=== PATIENT | female | born 1940 | race Caucasian/White ===

== ENCOUNTER 2016-07-09 07:35 | Outpatient (CLI) | payer MEDICARE | END 2016-07-09 07:36 | disposition home or self-care (01) | DX: N18.3 Chronic kidney disease, stage 3 (moderate) (principal); E78.5 Hyperlipidemia, unspecified ==

== ENCOUNTER 2017-02-21 09:06 | Outpatient (CLI) | payer MEDICARE | END 2017-02-21 09:07 | disposition EMS.NT | LOC: EMS 09:06 | PROVIDERS: ATTEND Surgery | DX: Z03.89 Encounter for observation for other suspected diseases and conditions ruled out (principal); W01.0XXA Fall on same level from slipping, tripping and stumbling without subsequent striking against object, initial encounter; Y92.008 Other place in unspecified non-institutional (private) residence as the place of occurrence of the external cause ==

== ENCOUNTER 2017-03-03 08:00 | Outpatient (CLI) | payer MEDICARE ==
[2017-03-03 12:53] LABS: CALCIUM 9.5 mg/dL (8.5-10.3); CREATININE 1.4 mg/dL (0.4-1.0); POTASSIUM 4.3 mmol/L (3.5-5.0)
== END 2017-03-03 08:01 | disposition home or self-care (01) ==
LOC: LAB.N 08:00
PROVIDERS: ATTEND Internal Medicine Cardiovascular Disease
DX: I50.22 Chronic systolic (congestive) heart failure (principal)
CPT/HCPCS: 36415; 80048

== ENCOUNTER 2017-08-12 07:37 | Outpatient (CLI) | payer MEDICARE ==
[2017-08-12 13:16] LABS: ALBUMIN 3.9 g/dL (3.2-5.5); ALBUMIN/GLOBULIN RATIO 1.4 (1.0-2.2); ALKALINE PHOSPHATASE 64 IU/L (42-121); ALT ALANINE AMINOTRANSFERASE 27 IU/L (10-60); AST ASPARTATE AMINOTRANSFERASE 26 IU/L (10-42); BILIRUBIN,TOTAL 0.9 mg/dL (0.2-1.0); BUN - BLOOD UREA NITROGEN 32 mg/dL (6-20); CALCIUM 9.1 mg/dL (8.5-10.3); CARBON DIOXIDE - CO2 27 mmol/L (21-32); CHLORIDE 105 mmol/L (101-111); CHOL/HDL RATIO 5.4 (<4.4); CHOLESTEROL 247 mg/dL; CREATININE 1.6 mg/dL (0.4-1.0); GFR - MDRD 31 (>89); GLUCOSE 94 mg/dL (70-100); HDL CHOLESTEROL 46 mg/dL; LDL CHOLESTEROL,CALCULATED 175 mg/dL; LDL/HDL RATIO 3.8 (<4.4); SODIUM 139 mmol/L (135-145); TOTAL PROTEIN 6.7 g/dL (6.7-8.2); VLDL CHOLESTEROL 26 mg/dL
[2017-08-12 13:22] LABS: BASOPHILS % (AUTO) 0.9 %; EOSINOPHILS # (AUTO) 0.5 10^3/uL (0.0-0.7); EOSINOPHILS % (AUTO) 8.8 %; HGB - HEMOGLOBIN 13.1 g/dL (12.0-16.0); LYMPHOCYTES # (AUTO) 1.6 10^3/uL (1.5-3.5); LYMPHOCYTES % (AUTO) 28.8 %; MEAN CORPUSCULAR HGB CONC 34.3 g/dL (32.0-36.0); MEAN CORPUSCULAR VOLUME 99.1 fL (81.0-99.0); MEAN PLATELET VOLUME 9.3 fL (7.9-10.8); MONOCYTES # (AUTO) 0.6 10^3/uL (0.0-1.0); NEUTROPHILS # (AUTO) 2.7 10^3/uL (1.5-6.6); NEUTROPHILS % (AUTO) 50.5 %; PLT - PLATELET COUNT 216 10^3/uL (130-450); RED BLOOD COUNT 3.84 10^6/uL (4.20-5.40); RED CELL DISTRIBUTION WIDTH 13.3 % (12.0-15.0); WHITE BLOOD COUNT 5.4 x10^3/uL (4.8-10.8)
[2017-08-12 13:42] LABS: PLATELET ESTIMATE, MANUAL NORMAL (130-450,000) (NORMAL); RBC MORPHOLOGY (MULTIPLE) NORMAL APPEARANCE (NORMAL)
== END 2017-08-12 07:38 ==
LOC: LAB.N 07:37
PROVIDERS: ATTEND Family Medicine
DX: N18.3 Chronic kidney disease, stage 3 (moderate) (principal); E78.5 Hyperlipidemia, unspecified
CPT/HCPCS: 36415; 80053; 80061; 83721; 85025

== ENCOUNTER 2018-04-02 11:22 | Outpatient (CLI) | payer MEDICARE ==
--- NOTE | 2018-04-05 09:32 | Mammography Report ---
Reason: SCREENING MAMMO Procedure Date: 04/02/2018 Accession Number: [id number] / [id number] Procedure: MGN - Screening Mammo Dig Bilat CPT Code: FULL RESULT: EXAM: Screening Mammo Dig Bilat DATE: 04/02/2018 11:39 AM CLINICAL HISTORY: Screening encounter. History of early menses. TECHNIQUE: Bilateral CC and MLO views were obtained. COMPARISON: 04/30/2015 through 10/29/2011. FINDINGS: The breasts demonstrate diffuse fatty replacement bilaterally. There are coarse typically benign calcifications. No suspicious masses, clustered microcalcifications, or regions of architectural distortion are identified. IMPRESSION: Benign findings RECOMMENDATION: Routine annual screening unless otherwise clinically indicated. BIRADS CATEGORY 2: Benign findings STANDARD QUALIFYING STATEMENTS: 1. This examination was reviewed with the aid of Computer-Aided Detection (CAD). 2. A negative or benign imaging report should not preclude biopsy if clinically suspicious findings are present. 3. Dense breasts may obscure an underlying neoplasm. 4. This examination was reviewed without the aid of 3D breast imaging (tomosynthesis).
== END 2018-04-02 11:23 | disposition home or self-care (01) ==
LOC: DI.N 11:22
PROVIDERS: ATTEND Internal Medicine
DX: Z12.31 Encounter for screening mammogram for malignant neoplasm of breast (principal)
CPT/HCPCS: 77067

== ENCOUNTER 2019-11-16 12:46 | Outpatient (CLI) | payer MEDICARE ==
--- NOTE | 2019-11-17 05:47 | Mammography Report ---
BILATERAL DIGITAL SCREENING MAMMOGRAM 3D/2D: 11/16/2019 CLINICAL: Routine screening. Comparison is made to exams dated: 04/30/2015 mammogram, 02/04/2013 mammogram, and 04/02/2018 mammogra m - [facility]. The tissue of both breasts is predominantly fatty. No significant masses, calcifications, or other findings are seen in either breast. There has been no significant interval change. IMPRESSION: NEGATIVE There is no mammographic evidence of malignancy. A 1 year screening mammogram is recommended. This exam was interpreted at Station ID: [id number]. NOTE: For mammograms, a report in lay terms will be sent to the patient. Approximately 15% of breast malignancies will not be visualized mammographically. In the management of a palpable breast mass, a negative mammogram must not discourage biopsy of a clinically suspicious lesion. Electronically Signed By: Carmen [email or web address]:11/16/2019 14:40:10 ACR BI-RADS Category 1: Negative 3341F PARENCHYMAL PATTERN: (F) - The breast(s) demonstrate(s) diffuse fatty replacement. BI-RADS CATEGORY: (1) - 1 RECOMMENDATION: (ANNUAL) - Recommend routine annual screening mammography. [id number] 1 year screening LATERALITY: (B)
== END 2019-11-16 12:47 | disposition home or self-care (01) ==
LOC: DI.N 12:46
PROVIDERS: ATTEND Internal Medicine
DX: Z12.31 Encounter for screening mammogram for malignant neoplasm of breast (principal)
CPT/HCPCS: 77063; 77067

== ENCOUNTER 2019-11-17 08:00 | Outpatient (CLI) | payer MEDICARE ==
[2019-11-17 12:14] LABS: BASOPHILS # (AUTO) 0.1 10^3/uL (0.0-0.1); BASOPHILS % (AUTO) 1.2 %; EOSINOPHILS # (AUTO) 0.3 10^3/uL (0.0-0.7); EOSINOPHILS % (AUTO) 6.3 %; HGB - HEMOGLOBIN 13.1 g/dL (12.0-16.0); LYMPHOCYTES # (AUTO) 1.6 10^3/uL (1.5-3.5); LYMPHOCYTES % (AUTO) 37.7 %; MEAN CORPUSCULAR HEMOGLOBIN 32.8 pg (27.0-31.0); MEAN CORPUSCULAR HGB CONC 31.6 g/dL (32.0-36.0); MEAN CORPUSCULAR VOLUME 103.5 fL (81.0-99.0); MEAN PLATELET VOLUME 11.5 fL (7.9-10.8); MONOCYTES # (AUTO) 0.4 10^3/uL (0.0-1.0); MONOCYTES % (AUTO) 9.6 %; NEUTROPHILS # (AUTO) 1.9 10^3/uL (1.5-6.6); PLT - PLATELET COUNT 196 10^3/uL (130-450); RED CELL DISTRIBUTION WIDTH 12.9 % (12.0-15.0); WHITE BLOOD COUNT 4.2 x10^3/uL (4.8-10.8)
[2019-11-17 12:24] LABS: ALBUMIN/GLOBULIN RATIO 1.7 (1.0-2.2); ALKALINE PHOSPHATASE 68 IU/L (42-121); ALT ALANINE AMINOTRANSFERASE 31 IU/L (10-60); AST ASPARTATE AMINOTRANSFERASE 29 IU/L (10-42); BUN - BLOOD UREA NITROGEN 33 mg/dL (6-20); CALCIUM 9.3 mg/dL (8.5-10.3); CARBON DIOXIDE - CO2 29 mmol/L (21-32); CHLORIDE 105 mmol/L (101-111); CHOL/HDL RATIO 3.7 (<4.4); CHOLESTEROL 205 mg/dL; CREATININE 1.8 mg/dL (0.4-1.0); GLUCOSE 99 mg/dL (70-100); HDL CHOLESTEROL 56 mg/dL; LDL CHOLESTEROL,CALCULATED 130 mg/dL; LDL/HDL RATIO 2.3 (<4.4); SODIUM 140 mmol/L (135-145); TOTAL PROTEIN 6.4 g/dL (6.7-8.2); VLDL CHOLESTEROL 19 mg/dL
== END 2019-11-17 23:59 | disposition home or self-care (01) ==
LOC: LAB.WCP 08:00
PROVIDERS: ATTEND Internal Medicine
DX: E78.5 Hyperlipidemia, unspecified (principal); I42.8 Other cardiomyopathies; N18.9 Chronic kidney disease, unspecified; Z79.899 Other long term (current) drug therapy
CPT/HCPCS: 36415; 80053; 80061; 83721; 84443; 85025

== ENCOUNTER 2020-11-08 17:38 | Outpatient (CLI) | payer MEDICARE | END 2020-11-08 17:39 | disposition home or self-care (01) | LOC: COV 17:38 | PROVIDERS: ATTEND Family Medicine | DX: R50.9 Fever, unspecified (principal); R05 Cough; R06.02 Shortness of breath; M79.10 Myalgia, unspecified site; R53.83 Other fatigue; R07.0 Pain in throat; R09.81 Nasal congestion; Z20.822 Contact with and (suspected) exposure to COVID-19 ==

== ENCOUNTER 2020-11-12 08:00 | Outpatient (CLI) | payer MEDICARE ==
[2020-11-12 11:38] LABS: HCT - HEMATOCRIT 39.9 % (37.0-47.0); HGB - HEMOGLOBIN 12.7 g/dL (12.0-16.0); MEAN CORPUSCULAR HGB CONC 31.8 g/dL (32.0-36.0); MEAN CORPUSCULAR VOLUME 103.6 fL (81.0-99.0); MEAN PLATELET VOLUME 11.5 fL (7.9-10.8); RED BLOOD COUNT 3.85 10^6/uL (4.20-5.40); RED CELL DISTRIBUTION WIDTH 13.1 % (12.0-15.0); WHITE BLOOD COUNT 5.4 x10^3/uL (4.8-10.8)
[2020-11-12 11:45] LABS: ALBUMIN 4.2 g/dL (3.2-5.5); ALBUMIN/GLOBULIN RATIO 1.5 (1.0-2.2); BILIRUBIN,TOTAL 1.1 mg/dL (0.2-1.0); CALCIUM 9.6 mg/dL (8.5-10.3); CREATININE 2.2 mg/dL (0.4-1.0); POTASSIUM 4.3 mmol/L (3.5-5.0)
== END 2020-11-12 08:01 | disposition home or self-care (01) ==
LOC: LAB.N 08:00
PROVIDERS: ATTEND Internal Medicine Cardiovascular Disease
DX: I42.9 Cardiomyopathy, unspecified (principal)
CPT/HCPCS: 36415; 80053; 85027

== ENCOUNTER 2020-11-22 09:35 | Outpatient (CLI) | payer MEDICARE ==
[2020-11-22 13:06] LABS: CREATININE,URINE 158.5 mg/dL
[2020-11-22 13:52] LABS: MICROALBUMIN,URINE < 0.2 mg/dL (0-300.0)
== END 2020-11-22 09:36 | disposition home or self-care (01) ==
LOC: LAB.N 09:35
PROVIDERS: ATTEND Internal Medicine Nephrology
DX: R80.9 Proteinuria, unspecified (principal)
CPT/HCPCS: 82043; 82570

== ENCOUNTER 2020-12-10 07:17 | Outpatient (CLI) | payer MEDICARE ==
[2020-12-10 12:18] LABS: CREATININE 1.7 mg/dL (0.4-1.0)
== END 2020-12-10 07:18 | disposition home or self-care (01) ==
LOC: LAB.N 07:17
PROVIDERS: ATTEND Internal Medicine Nephrology
DX: N05.9 Unspecified nephritic syndrome with unspecified morphologic changes (principal)
CPT/HCPCS: 36415; 82565

== ENCOUNTER 2021-01-03 11:57 | Outpatient (CLI) | payer MEDICARE | END 2021-01-03 11:58 | disposition home or self-care (01) | LOC: LAB 11:57 | PROVIDERS: ATTEND Obstetrics & Gynecology | DX: N05.9 Unspecified nephritic syndrome with unspecified morphologic changes (principal) | CPT/HCPCS: 36415; 80048 ==

== ENCOUNTER 2021-01-03 14:16 | Outpatient (CLI) | payer MEDICARE ==
[2021-01-03 18:35] LABS: CALCIUM 8.7 mg/dL (8.5-10.3); CREATININE 1.8 mg/dL (0.4-1.0); POTASSIUM 3.9 mmol/L (3.5-5.0)
== END 2021-01-03 14:17 | disposition home or self-care (01) ==
LOC: LAB.N 14:16
PROVIDERS: ATTEND Urology
DX: N05.9 Unspecified nephritic syndrome with unspecified morphologic changes (principal)
CPT/HCPCS: 36415; 80048

== ENCOUNTER 2021-10-02 07:05 | Outpatient (CLI) | payer MEDICARE ==
[2021-10-02 12:23] LABS: CALCIUM 9.6 mg/dL (8.5-10.3); CREATININE 1.7 mg/dL (0.4-1.0); POTASSIUM 4.3 mmol/L (3.5-5.0)
== END 2021-10-02 07:06 | disposition home or self-care (01) ==
LOC: LAB.N 07:05
PROVIDERS: ATTEND Internal Medicine
DX: I42.8 Other cardiomyopathies (principal); I10 Essential (primary) hypertension; Z79.899 Other long term (current) drug therapy
CPT/HCPCS: 36415; 80048

== ENCOUNTER 2022-05-26 07:09 | Outpatient (CLI) | payer MEDICARE ==
[2022-05-26 13:21] LABS: ALBUMIN 3.5 g/dL (3.2-5.5); ALBUMIN/GLOBULIN RATIO 1.5 (1.0-2.2); ALKALINE PHOSPHATASE 58 IU/L (42-121); ALT ALANINE AMINOTRANSFERASE 23 IU/L (10-60); AST ASPARTATE AMINOTRANSFERASE 25 IU/L (10-42); BILIRUBIN,TOTAL 0.5 mg/dL (0.2-1.0); BUN - BLOOD UREA NITROGEN 21 mg/dL (6-20); CALCIUM 8.9 mg/dL (8.5-10.3); CARBON DIOXIDE - CO2 30 mmol/L (21-32); CHLORIDE 104 mmol/L (101-111); CHOL/HDL RATIO 3.7 (<4.4); CHOLESTEROL 197 mg/dL; CREATININE 1.4 mg/dL (0.4-1.0); GFR - MDRD 36 (>89); GLUCOSE 103 mg/dL (70-100); HDL CHOLESTEROL 53 mg/dL; LDL CHOLESTEROL,CALCULATED 112 mg/dL; LDL/HDL RATIO 2.1 (<4.4); POTASSIUM 4.4 mmol/L (3.5-5.0); SODIUM 138 mmol/L (135-145); TOTAL PROTEIN 5.9 g/dL (6.7-8.2); TRIGLYCERIDES 159 mg/dL; VLDL CHOLESTEROL 32 mg/dL
== END 2022-05-26 07:10 | disposition home or self-care (01) ==
LOC: LAB.N 07:09
PROVIDERS: ATTEND Nurse Practitioner
DX: I50.22 Chronic systolic (congestive) heart failure (principal); N28.9 Disorder of kidney and ureter, unspecified
CPT/HCPCS: 36415; 80053; 80061; 83721

== ENCOUNTER 2022-07-20 07:52 | Emergency (ER) | payer MEDICARE ==
[2022-07-20 08:09] VITALS: BP 124/59
[2022-07-20] MEDS ORDERED: AMOX/CLAV 875 MG/125 MG TABLET PO STA (08:42)
[2022-07-20] MEDS ORDERED: TETANUS/DIPHTHERIA/PERTUSSIS 0.5 ML SYRINGE IM ONE (08:42)
--- NOTE | 2022-07-20 08:46 | ED Physician Documentation ---
PD HPI UPPER EXT INJURY - Stated complaint Stated Complaint: CAT BITE, RT ARM - Chief complaint Chief Complaint: Wound - History obtained from History obtained from: Patient - Additonal information Additional information: The patient comes to the emergency department with chief complaint of infected cat bite. 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 The patient states that she did not notice any redness until today. She states that when she got up this morning she noticed that it was red around the wound and that there was a streak going up her arm. She also got a little bit of purulent material out of the wound. The patient states that she did initially wash the wound when it first happened and then applied iodine and Neosporin. She states she knows the cat very well and actually, helped put it through a program to stay feral cats. At that time, the cat was given a rabies vaccine, as well, so she knows the cat is vaccinated. She also states the cat really was not generally acting any different than normal but that it is a bit skittish. The patient denies any fevers or chills. She had some diarrhea and a little stomach upset the day after the bite happened but has had nothing since. No other complaints at this time. She states she thinks her last tetanus shot was at least 10 years ago. PD PAST MEDICAL HISTORY - Past Medical History Past Medical History: Yes Cardiovascular: Other Respiratory: Asthma, COPD Neuro: None Endocrine/Autoimmune: None GI: Hemorrhoids OCCUP THERAPIST: None : Renal insuffiency HEENT: None Psych: None Musculoskeletal: Osteoarthritis Derm: Psoriasis - Past Surgical History Past Surgical History: Yes Cardiovascular: Cardiac catheterization - Present Medications Home Medications: Ambulatory Orders Medication Instructions Recorded Confirmed Albuterol 1 puffs INH Q4HR PRN 05/31/15 07/20/22 Cholecalciferol (Vitamin D3) 1 cap PO DAILY 05/31/15 07/20/22 [Vitamin D] Fluticasone/Salmeterol 250/50 1 puffs INH BID 05/31/15 05/31/15 [Advair 250 Mcg/50 Mcg] Losartan [Cozaar] 1 tab PO DAILY 05/31/15 07/20/22 Metoprolol Succinate 1 tab PO DAILY 05/31/15 07/20/22 Multivitamin [Multivitamins] 1 tab PO DAILY 05/31/15 07/20/22 Amox/Clav 875/125 [Augmentin] 1 each PO Q12H #14 tablet 07/20/22 - Allergies Allergies/Adverse Reactions: Allergies Allergy/AdvReac Type Severity Reaction Status Date / Time carvedilol [From Coreg] AdvReac Anaphylaxis Verified 07/20/22 08:05 codeine AdvReac Nausea Verified 07/20/22 08:05 procaine HCl * AdvReac Nausea Verified 07/20/22 08:05 [From Novocain] - Social History Does the pt smoke?: No Smoking Status: Never smoker Does the pt drink ETOH?: No Does the pt have substance abuse?: No - Immunizations Immunizations are current?: No Immunizations: Other immun not current PD ED PE NORMAL - Vitals Vital signs reviewed: Yes - General General: Alert and oriented X 3, No acute distress, Well developed/nourished - HEENT HEENT: Atraumatic, PERRL, EOMI, Moist mucous membranes - Neck Neck: Supple, no meningeal sign - Cardiac Cardiac: Strong equal pulses - Respiratory Respiratory: No respiratory distress - Derm Derm: Warm and dry, Other (Scabbed puncture wound over flexor surface of mid right forearm with approximately 1.5 cm radius of erythema surrounding. A faint erythematous streak is noted to be ascending the patient's arm. No induration or fluctuance.) - Extremities Extremities: No deformity - Neuro Neuro: Alert and oriented X 3 - Psych Psych: Normal mood, Normal affect Results - Vitals Vitals: Vital Signs - 24 hr 07/20/22 08:07 Temperature 36.4 C L Heart Rate 73 Respiratory 16 Rate Blood Pressure 124/59 L O2 Saturation 99 Oxygen O2 Source Room air PD Medical Decision Making - ED course Complexity details: considered differential, d/w patient ED course: The patient was well-appearing but clearly had a infection setting in the puncture site. She was given first dose of Augmentin here in the emergency department and was also given a tetanus update. I have sent the remainder of her antibiotics by prescription to [facility] pharmacy at her request. We have discussed the usual indications for return. Departure - Departure Disposition: 01 Home, Self Care Clinical Impression: Infected cat bite of forearm Qualifiers: Encounter type: initial encounter Laterality: right Qualified Code(s): S51.851A - Open bite of right forearm, initial encounter; L08.9 - Local infection of the skin and subcutaneous tissue, unspecified; W55.01XA - Bitten by cat, initial encounter Condition: Stable Instructions: ED Bite Animal General, ED Infec Skin Cellulitis Prescriptions: Amox/Clav 875/125 [Augmentin] 1 each PO Q12H #14 tablet Comments: You have been given first dose of your antibiotics here. According to our system, your last tetanus shot was in January 2013, so you were given a booster shot since you are nearly due for this anyway. A prescription for your antibiotics has been electronically transmitted to the [facility] pharmacy in [place] at your request. Please pick this up today and take your next dose sometime this afternoon or evening. If you notice that the redness is still spreading after the next couple of days, or if you after couple of days begin to develop fevers and chills or body aches, please have the wound rechecked.
== END 2022-07-20 09:00 | disposition home or self-care (01) ==
LOC: ED 07:52
DX: S51.851A Open bite of right forearm, initial encounter (principal); L08.9 Local infection of the skin and subcutaneous tissue, unspecified; W55.01XA Bitten by cat, initial encounter; Y93.K9 Activity, other involving animal care; J44.9 Chronic obstructive pulmonary disease, unspecified; Z79.51 Long term (current) use of inhaled steroids; Z23 Encounter for immunization
CPT/HCPCS: 90471; 90715; 99283; A9270

== ENCOUNTER 2022-11-25 07:57 | Outpatient (CLI) | payer MEDICARE ==
--- NOTE | 2022-11-26 11:32 | Mammography Report ---
BILATERAL DIGITAL SCREENING MAMMOGRAM 3D/2D: 11/25/2022 CLINICAL: Routine screening. Comparison is made to exams dated: 11/16/2019 mammogram, 04/02/2018 mammogram, 04/30/2015 mammogram, mammogram, and 10/29/2011 mammogram - [facility]. There are scattered areas of fibroglandular density in both breasts (category b / 25%-50% glandular t issue). No significant masses, calcifications, or other findings are seen in either breast. IMPRESSION: NEGATIVE There is no mammographic evidence of malignancy. A 1 year screening mammogram is recommended. Based on the Tyrer Cuzick model (a risk assessment model) the patients lifetime risk is 1.5% and her 10 year risk is 0.0%. According to the ACR, ACS, and NCCN guidelines, an annual breast MRI exam jose carlos g with mammogram is recommended if the patients lifetime risk is 20% or greater. This exam was interpreted at Station ID: [id number]. NOTE: For mammograms, a report in lay terms will be sent to the patient. Approximately 15% of breast malignancies will not be visualized mammographically. In the management of a palpable breast mass, a negative mammogram must not discourage biopsy of a clinically suspicious lesion. Electronically Signed By: Sis [email or web address]/[email or web address]:11/25/2022 10:19:29 ACR BI-RADS Category 1: Negative 3341F PARENCHYMAL PATTERN: (A) - The breast(s) demonstrate(s) scattered fibroglandular densities. BI-RADS CATEGORY: (1) - 1 Mammogram [id number] 1 year screening LATERALITY: (B)
== END 2022-11-25 07:58 | disposition home or self-care (01) ==
LOC: DI.N 07:57
PROVIDERS: ATTEND Internal Medicine
DX: Z12.31 Encounter for screening mammogram for malignant neoplasm of breast (principal)

== ENCOUNTER 2023-09-13 03:23 | Outpatient (CLI) | payer MEDICARE | END 2023-09-13 23:59 | disposition critical access hospital (66) | LOC: EMS 03:23 | DX: R07.89 Other chest pain (principal) | CPT/HCPCS: A0425; A0429 ==

== ENCOUNTER 2023-09-13 03:39 | Emergency (ER) | payer MEDICARE ==
--- NOTE | 2023-09-13 04:02 | ED Physician Documentation ---
PD HPI CHEST PAIN - Stated complaint Stated Complaint: CP - Chief complaint Chief Complaint: Cardiac - History obtained from History obtained from: Patient - Additional information Additional information: HPI from patient. Patient c/o left anterior chest pain. Initial episode was 3 days ago while at ambulating at home, described as pressure and without radiation. She had not had this pain before. She took one SLNTG and pain resolved within a few minutes. The same pain, in same location (left anterior chest) reoccurred tonight while at home at rest but did not resolve after three SLNTG (spaced out 5-10 minutes apart) and thus she called 911. Denies dyspnea, leg swelling, numbness, weakness. There were no apparent exacerbating nor ameliorating factors. En route to ED, the pain has resolved and has not recurred. PMHx includes cardiomyopathy with EF in the low-mid 40s with viral etiology suspected (this is all per patient who apparently retains this information quite well). Review of Systems Cardiac: reports: Chest pain / pressure. denies: Palpitations, Pedal edema, Calf pain Respiratory: reports: Reviewed and negative GI: reports: Reviewed and negative PD PAST MEDICAL HISTORY - Past Medical History Cardiovascular: Other Respiratory: Asthma, COPD Neuro: None Endocrine/Autoimmune: None GI: Hemorrhoids ENDOSCOPY RN: None : Renal insuffiency HEENT: None Psych: None Musculoskeletal: Osteoarthritis Derm: Psoriasis - Past Surgical History Past Surgical History: Yes Cardiovascular: Cardiac catheterization - Present Medications Home Medications: Ambulatory Orders Medication Instructions Recorded Confirmed Cholecalciferol (Vitamin D3) 500 units PO DAILY 05/31/15 09/13/23 [Vitamin D] Losartan [Cozaar] 50 mg PO DAILY 05/31/15 09/13/23 Metoprolol Succinate 1 tab PO DAILY 05/31/15 09/13/23 Multivitamin [Multivitamins] 1 tab PO DAILY 05/31/15 09/13/23 Albuterol Sulfate [Proair 90 mcg IH Q4HR PRN 09/13/23 09/13/23 Digihaler] Cyanocobalamin (Vitamin B-12) 500 mcg PO DAILY 09/13/23 09/13/23 [Vitamin B-12 (500 mcg sublingual)] Fluticasone/Vilanterol [Breo 1 puffs INH DAILY 09/13/23 09/13/23 Ellipta 100-25 Mcg Inhalr] Nitroglycerin [Nitrostat] 0.4 mg SL [id number] PRN 09/13/23 09/13/23 Vitamin E Mixed [Vitamin E] 400 unit PO DAILY 09/13/23 09/13/23 - Allergies Allergies/Adverse Reactions: Allergies Allergy/AdvReac Type Severity Reaction Status Date / Time carvedilol [From Coreg] AdvReac Anaphylaxis Verified 09/13/23 03:46 codeine AdvReac Nausea Verified 09/13/23 03:46 procaine HCl * AdvReac Nausea Verified 09/13/23 03:46 [From Novocain] - Social History Does the pt smoke?: No Smoking Status: Never smoker Does the pt drink ETOH?: No Does the pt have substance abuse?: No - Immunizations Immunizations are current?: No Immunizations: Other immun not current PD ED PE NORMAL - Vitals Vital signs reviewed: Yes - General General: Alert and oriented X 3, No acute distress, Well developed/nourished - Neck Neck: Supple, no meningeal sign - Cardiac Cardiac: RRR, No murmur, No gallop, No rub - Respiratory Respiratory: No respiratory distress, Clear bilaterally - Abdomen Abdomen: Soft, Non tender - Derm Derm: Normal color, Warm and dry - Extremities Extremities: No edema Results - Vitals Vitals: Vital Signs - 24 hr 09/13/23 09/13/23 09/13/23 03:46 04:30 05:30 Temperature 36.3 C L Heart Rate 68 67 71 Respiratory 17 15 18 Rate Blood Pressure 130/73 123/65 113/75 O2 Saturation 100 98 98 Oxygen O2 Source Room air - EKG (time done) No standard instances EKG releavant findings:: EKG personally interpreted by author of this note. Relevant findings are: Rate: Rate (enter#) (75) Rhythm: NSR [place]: LAD Intervals: Wide QRS, LBBB Ischemia: Normal ST segments, Q waves (V1, V2) - Labs Labs: Laboratory Tests 09/13/23 09/13/23 04:03 04:03 WBC 4.8 RBC 3.41 L Hgb 11.1 L Hct 34.9 L MCV 102.3 H MCH 32.6 H MCHC 31.8 L RDW 13.2 Plt Count 184 MPV 10.6 Neut # (Auto) 2.0 Lymph # (Auto) 2.0 [place] # (Auto) 0.5 Eos # (Auto) 0.2 Baso # (Auto) 0.1 Absolute Nucleated RBC 0.00 Nucleated RBC % 0.0 Sodium 140 Potassium 4.6 H Chloride 108 Carbon Dioxide 26 Anion Gap 6.0 BUN 34 H Creatinine 2.2 H Estimated GFR (MDRD) 21 L Glucose 95 Calcium 9.4 Total Bilirubin 0.6 AST 18 ALT 14 Alkaline Phosphatase 61 Troponin I High Sens 11.6 Total Protein 5.7 L Albumin 3.7 Globulin 2.0 L Albumin/Globulin Ratio 1.9 Lipase 22 - Rads (name of study) chest xray Relevant Findings:: Prelim report reviewed, See rad report PD Medical Decision Making - ED course Complexity details: reviewed results, re-evaluated patient, considered differential, d/w patient, d/w family ED course: Chest pain earlier tonight that resolved [employer] albeit only after 3 SLNTG. She presents asymptomatic and remains so throughout ED stay. No concerning findings on CXR. EKG demonstrates LBBB; patient is not familiar with this diagnosis and thus suspicion is this could be new. However, I was able to access [facility] system and in this patient's records is a nuc ST from a few years ago that twice mentions presence of left bundle branch block (in the dictation of the study findings and parameters), thus confirming that this is NOT a new finding for her. The EKG does NOT meet sgarbossa criteria for acute FL. Unremarkable blood test results. Minimal hyperkalemia noted (4.6). Mildly elevated BUN (34, not significantly deviated from her baseline based on many previous results in [facility]) and creatinine (2.2, slightly higher than baseline). Normal hs-cTn (11.6). Etiology of symptoms is not apparent at this time. Results d/w patient and her daughter (in ED at patient's bedside). Return precautions are carefully reviewed and encouraged to have a low threshold for return, particularly if her symptoms worsen in any way. She has an appointment with her way inspector scheduled for a few weeks from now; I instructed her to contact the way inspector's office to let them know of this ED visit and to inquire as to whether her way inspector might recommend a more expeditious follow up. Departure - Departure Disposition: 01 Home, Self Care Clinical Impression: Chest pain Condition: Good Instructions: Bundle Branch Block Left About, ED Chest Pain Atypical Unkn Cause Comments: There were no concerning nor diagnostic findings on tonight's test, including the EKG, blood tests, and chest x-ray. As we discussed, the EKG showed a left bundle branch block. Included in these discharge sheets are instructions r egarding this finding. I was able to find previous records of yours that indicate this is NOT a new finding. Thus, the finding of left bundle branch block is incidental (not being caused by, nor the cause of, your chest pain). This does not make the chest pain any less concerning. I recommend you contact your way inspector Thursday when the office is next open to see if they recommend an appointment earlier than the one you have scheduled for next month. Forms: PCP List Discharge Date/Time: 09/13/23 05:42
[2023-09-13 04:07] LABS: BASOPHILS # (AUTO) 0.1 10^3/uL (0.0-0.1); EOSINOPHILS # (AUTO) 0.2 10^3/uL (0.0-0.7); EOSINOPHILS % (AUTO) 4.8 %; HCT - HEMATOCRIT 34.9 % (37.0-47.0); HGB - HEMOGLOBIN 11.1 g/dL (12.0-16.0); LYMPHOCYTES % (AUTO) 41.9 %; MEAN CORPUSCULAR HEMOGLOBIN 32.6 pg (27.0-31.0); MEAN CORPUSCULAR HGB CONC 31.8 g/dL (32.0-36.0); MEAN CORPUSCULAR VOLUME 102.3 fL (81.0-99.0); MEAN PLATELET VOLUME 10.6 fL (7.9-10.8); MONOCYTES # (AUTO) 0.5 10^3/uL (0.0-1.0); MONOCYTES % (AUTO) 11.3 %; PLT - PLATELET COUNT 184 10^3/uL (130-450); RED BLOOD COUNT 3.41 10^6/uL (4.20-5.40); RED CELL DISTRIBUTION WIDTH 13.2 % (12.0-15.0); WHITE BLOOD COUNT 4.8 x10^3/uL (4.8-10.8)
[2023-09-13 04:21] LABS: ALBUMIN 3.7 g/dL (3.2-5.5); ALBUMIN/GLOBULIN RATIO 1.9 (1.0-2.2); BILIRUBIN,TOTAL 0.6 mg/dL (0.2-1.0); CALCIUM 9.4 mg/dL (8.5-10.3); CREATININE 2.2 mg/dL (0.6-1.3); POTASSIUM 4.6 mmol/L (3.5-4.5); TOTAL PROTEIN 5.7 g/dL (6.4-8.9)
[2023-09-13 04:50] LABS: TROPONIN I HIGH SENSITIVITY 11.6 ng/L (2.3-14.8)
[2023-09-13 05:49] VITALS: BP 113/75; O2SAT 98
--- NOTE | 2023-09-13 07:11 | XRAY Report ---
PROCEDURE: Chest 1V INDICATIONS: Chest pain TECHNIQUE: One view of the chest was acquired. COMPARISON: None. FINDINGS: Surgical changes and devices: None. Lungs and pleura: No pleural effusions or pneumothorax. Lungs are clear. Mediastinum: Mediastinal contours appear normal. Heart size is normal. Bones and chest wall: No suspicious bony lesions. Overlying soft tissues appear unremarkable. IMPRESSION: No acute cardiopulmonary process. Findings are concordant with preliminary interpretation provided by [facility]. Reviewed by: Zechariah Lewis MD on 09/13/2023 7:09 AM PDT Approved by: Zechariah Lewis MD on 09/13/2023 7:09 AM PDT Station ID: [id number]
== END 2023-09-13 05:42 | disposition home or self-care (01) ==
LOC: EDUNIT# → ED 03:39
DX: R07.89 Other chest pain (principal); J44.9 Chronic obstructive pulmonary disease, unspecified; Z79.899 Other long term (current) drug therapy; Z79.51 Long term (current) use of inhaled steroids
CPT/HCPCS: 36415; 80053; 83690; 84484; 85025; 93005; 99283; 99284